=== PATIENT | female | born 1960 | race Caucasian/White ===

== ENCOUNTER 2018-05-12 07:15 | Day surgery (SDC) | payer OTHER ==
[~2018-05-12 07:15] MED LIST: Acetaminophen TAB* 325 MG PO PRN; Buffered Lidocaine 0.9% SYRIN* 5 ML/SYR SYRINGE INTRADERM ONE; Cyclopentolate 1% OPTH.SOL* 2 ML BTL ONE; Ketorolac 0.5% OPHTH (NF) 0.5 % 5 ML BTL ONE; Lidocaine 1%* 5 ML VIAL ONE; Neomycin/Polymy/Dex OPHTH.OIN* 3.5 GM ONE; Phenylephrine 2.5% OPTH.SOL* 2 ML BTL ONE; Tetracaine 0.5% OPTH.SOL 4 ML* 1 DROP BTL ONE; Tropicamide 1% OPTH.SOL* BTL ONE
[2018-05-12] MEDS ORDERED: Midazolam* 1 MG/ML 5 ML VIAL (5 MG) ONE (07:51)
[2018-05-12] MEDS ORDERED: Neomycin/Polymy/Dex OPHTH.OIN* 3.5 GM ONE (07:51)
[2018-05-12] MEDS ORDERED: Lidocaine 1%* 5 ML VIAL ONE (07:51)
[2018-05-12] MEDS ORDERED: Phenylephrine 2.5% OPTH.SOL* 2 ML BTL ONE (07:51)
[2018-05-12] MEDS ORDERED: fentaNYL* 50 MCG/ML 2 ML VIAL (100 MCG VIAL) ONE (07:51)
[2018-05-12] MEDS ORDERED: Cyclopentolate 1% OPTH.SOL* 2 ML BTL ONE (07:51)
[2018-05-12] MEDS ORDERED: Tropicamide 1% OPTH.SOL* BTL ONE (07:51)
[2018-05-12] MEDS ORDERED: Tetracaine 0.5% OPTH.SOL 4 ML* 1 DROP BTL ONE (07:52)
[2018-05-12] MEDS ORDERED: Ketorolac 0.5% OPHTH (NF) 0.5 % 5 ML BTL ONE (07:52)
[2018-05-12] MEDS ORDERED: Phenylephr/Ketorolac 1%/0.3% OPH DROP BTL ONE ×2 (07:52→09:13)
[2018-05-12 09:40] VITALS: BP 114/86
--- NOTE | 2018-05-13 01:14 | OP ---
DATE OF OPERATION: 05/12/18 [facility] DATE OF : 56 SURGEON: Dr. Antolin Leon. BUILDING TECH: None. ANESTHESIA: Topical with intravenous sedation. PRE-OP DIAGNOSIS: Cataract, right eye. POST-OP DIAGNOSIS: Cataract, right eye. OPERATIVE PROCEDURE: Phacoemulsification and cataract extraction with posterior chamber intraocular lens implant, right eye. COMPLICATIONS: None. BLOOD LOSS: None. DESCRIPTION OF PROCEDURE: The patient was brought to the operating room and received a small amount of intravenous sedation. A drop of Tetracaine was placed in her right eye. She was prepped and draped in the usual sterile fashion for ophthalmic surgery and attention was directed to the right eye where a speculum was placed. A paracentesis was created at the 11 o'clock position and 0.1 cc of 1 percent preservative-free Lidocaine was injected into the anterior chamber followed by DisCoVisc. The eye was digitally stabilized while a 2.75 mm keratome was used to create a triplanar clear corneal incision at the 9 o'clock position. A continuous curvilinear capsulorrhexis was created with a cystotome and Utrata forceps. BSS on a cannula was used to hydrodissect the lens from the capsule. Phacoemulsification was performed in a divide-and- conquer technique to create four fragments which were removed. Residual cortical material was removed with irrigation and aspiration. DisCoVisc was used to inflate the capsular bag and an AUOOTO 23.5 Diopter lens was folded and inserted into the capsular bag. DisCoVisc was removed using irrigation and aspiration. BSS on a cannula was used to hydrate the corneal stroma and seal the wound. At the end of the case the pupil was round and the lens was centered. The eye was of normal pressure and the wound was water tight. The speculum was removed and topical Maxitrol ointment was placed on the surface of the eye. The eye was closed, patched and shielded and the patient was sent to the recovery room in stable condition with post operative instructions and follow-up appointment given. [id number]/[facility] #: [id number] MTDD
== END 2018-05-12 09:38 | disposition home or self-care (01) ==
LOC: OREAST 07:15
PROVIDERS: ATTEND Ophthalmology
DX: H25.041 Posterior subcapsular polar age-related cataract, right eye (principal); E11.40 Type 2 diabetes mellitus with diabetic neuropathy, unspecified; Z79.4 Long term (current) use of insulin; I10 Essential (primary) hypertension; E78.00 Pure hypercholesterolemia, unspecified; M79.605 Pain in left leg; M79.604 Pain in right leg; M54.5 Low back pain; Z72.0 Tobacco use; J44.9 Chronic obstructive pulmonary disease, unspecified; Z99.81 Dependence on supplemental oxygen; F41.8 Other specified anxiety disorders
CPT/HCPCS: A9270-GY; C9447; J2250; J3010; V2632

== ENCOUNTER 2018-05-19 10:09 | Day surgery (SDC) | payer OTHER ==
[2018-05-19] MEDS ORDERED: fentaNYL* 50 MCG/ML 2 ML VIAL (100 MCG VIAL) ONE (11:57)
[2018-05-19] MEDS ORDERED: Midazolam* 1 MG/ML 2 ML VIAL (2 MG) ONE (11:57)
[2018-05-19 13:15] VITALS: BP 123/57
[2018-05-19] MEDS ORDERED: Phenylephr/Ketorolac 1%/0.3% OPH DROP BTL ONE (14:12)
--- NOTE | 2018-05-20 01:52 | OP ---
CANCELED PER DR. LEON - FULL AND MORE COMPLETE REPORT DICTATED TO REPLACE THIS DATE OF OPERATION: 05/19/18 - [facility] DATE OF : 56 SURGEON: Dr. Antolin Leon PASTRYCOOK: None. ANESTHESIA: Topical with intravenous sedation. PRE-OP DIAGNOSIS: Cataract, left eye. POST-OP DIAGNOSIS: Cataract, left eye. OPERATIVE PROCEDURE: Phacoemulsification and cataract extraction with posterior chamber intraocular lens implant, left eye. COMPLICATIONS: None. BLOOD LOSS: None. DESCRIPTION OF PROCEDURE: The patient was brought to the operating room and received a small amount of intravenous sedation. A drop of Tetracaine was placed in her left eye. She was prepped and draped in the usual sterile fashion for ophthalmic surgery and attention was directed to the left eye where a speculum was placed. A paracentesis was created at the 5 o'clock position and 0.1 cc of 1 percent preservative-free Lidocaine was injected into the anterior chamber followed by DisCoVisc. The eye was digitally stabilized while a 2.75 mm keratome was used to create a triplanar clear corneal incision at the 3 o'clock position. A continuous curvilinear capsulorrhexis was created with a cystotome and Utrata forceps. BSS on a cannula was used to hydrodissect the lens from the capsule. Phacoemulsification was performed in a divide-and- conquer technique to create four fragments which were removed. Residual cortical material was removed with irrigation and aspiration. DisCoVisc was used to inflate the capsular bag and an AU00T0 23.5 diopter lens was folded and inserted into the capsular bag. DisCoVisc was removed using irrigation and aspiration. BSS on a cannula was used to hydrate the corneal stroma and seal the wound. At the end of the case the pupil was round and the lens was centered. The eye was of normal pressure and the wound was water tight. The speculum was removed and topical Maxitrol ointment was placed on the surface of the eye. The eye was closed, patched and shielded and the patient was sent to the recovery room in stable condition with post operative instructions and follow-up appointment given. [id number]/[facility]PS #: [id number] MTDJeff
--- NOTE | 2018-05-20 07:06 | OP ---
DATE OF OPERATION: 05/19/18 - [facility] DATE OF : 56 SURGEON: Dr. Leon. BABCOCK TESTER: None. ANESTHESIA: Topical with intravenous sedation. PRE-OP DIAGNOSIS: Cataract with small pupil, left eye. POST-OP DIAGNOSIS: Cataract with small pupil, left eye. OPERATIVE PROCEDURE: hacoemulsification and cataract extraction with posterior chamber intraocular lens implant, left eye. COMPLICATIONS: None. BLOOD LOSS: None. DESCRIPTION OF PROCEDURE: The patient was brought to the operating room and given intravenous sedation and a drop of Tetracaine to her left eye. She was prepped and draped in the usual sterile fashion for ophthalmic surgery and attention was directed to the left eye where a speculum was placed. A paracentesis was created at the 5 o'clock position and 0.1 cc of 1% preservative -free Lidocaine was injected into the anterior chamber followed by DisCoVisc. The eye was digitally stabilized and a 2.75 mm keratome was used to create a triplanar clear corneal incision at the 3 o'clock position. It was noted that the pupil measured approximately 3.5 to 4 mm in diameter. A continuous curvilinear capsulorrhexis was created with a cystotome and Utrata forceps measuring approximately 4 mm in diameter. Omidria was placed into the irrigating solution. BSS on a cannula was used to hydrodissect the lens from the capsule. Phacoemulsification was begun and it was noted the pupil was not staying large. So, instead the phacoemulsification tip was removed and more DisCoVisc was placed into the anterior chamber. A Malyugin ring was inserted to hold the pupil open. At this point, phacoemulsification was resumed. A divide-and- conquer technique was employed to create four fragments, which were removed. Residual cortical material was removed with irrigation and aspiration. DisCoVisc was used to inflate the capsular bag. An AUOOTO 23.5 diopter lens was inserted into the capsular bag. The Malyugin ring was removed. DisCoVisc was then removed from the eye. BSS on a cannula was used to hydrate the corneal stroma and seal the wound. At the end of the case, the pupil was small, round and regular. The eye pressure appeared normal. The lens was centered and stable. The speculum was removed and topical Maxitrol ointment was placed on the surface of the eye. The eye was closed, patched and shielded and the patient was sent to the recovery room in stable condition with postoperative instructions and followup appointment given. [id number]/[facility] #: [id number] THEODORA
== END 2018-05-19 13:15 | disposition home or self-care (01) ==
LOC: OREAST 10:09
PROVIDERS: ATTEND Ophthalmology
DX: H25.042 Posterior subcapsular polar age-related cataract, left eye (principal); H21.562 Pupillary abnormality, left eye; I10 Essential (primary) hypertension; E78.00 Pure hypercholesterolemia, unspecified; J44.9 Chronic obstructive pulmonary disease, unspecified; Z72.0 Tobacco use; E11.9 Type 2 diabetes mellitus without complications; Z79.4 Long term (current) use of insulin; F41.8 Other specified anxiety disorders; Z99.81 Dependence on supplemental oxygen
CPT/HCPCS: A9270-GY; C9447; J2250; J3010; V2632

== ENCOUNTER 2018-11-19 14:47 | Observation (INO) | payer OTHER ==
[2018-11-19] MEDS ORDERED: Acetaminophen TAB* 325 MG PO ONE (15:15)
[2018-11-19] MEDS ORDERED: cefTRIAXone(*) 1 GM in NS 0.9% 50 ML* 50 ML IVPB ONE (15:31)
[2018-11-19] MEDS ORDERED: NS 0.9% 1000 ML*IV.FLUID IV ONE (15:31)
[2018-11-19] MEDS ORDERED: Azithromycin IV(*) 500 MG in NS 0.9% 250 ML* 250 ML IVPB ONE (15:31)
--- NOTE | 2018-11-19 15:37 | ED ---
HPI Febrile Illness - HPI Summary HPI Summary: 58-year-old female presents with shortness of breath and altered mental status today. She has been having a fever. She spent times a day for 3 days. She is originally called for diabetic problem. She is arousable. She is on home oxygen at night. She has history of COPD. no sore throat or sinus congestion. she denies any SOB but appears SOB on exam. denies any chest pain. She occurs no compliant at this time. no abdominal pain. no pain or swelling in her calf muscles. - History of Current Complaint Chief Complaint: EDGeneral Time Seen by Provider: 11/19/18 15:05 Pain Intensity: 0 - Allergy/Home Medications Allergies/Adverse Reactions: Allergies Allergy/AdvReac Type Severity Reaction Status Date / Time codeine Allergy Severe Itching Verified 11/19/18 17:14 Seasonal Allergies Allergy Congestion Uncoded 11/19/18 17:14 Home Medications: Home Medications Gabapentin CAP(*) [Neurontin 400 mg CAP(*)] 1,200 mg PO TID 11/19/18 [History Confirmed 11/19/18] Insulin NPH Hum/Reg Insulin Hm [Novolin 70-30 Flexpen] 32 unit SUBCUT BID [History Confirmed 11/19/18] Metoprolol Tartrate TAB* [Lopressor TAB*] 50 mg PO BID 11/19/18 [History Confirmed 11/19/18] Nortriptyline CAP* [Pamelor CAP*] 100 mg PO BEDTIME 11/19/18 [History Confirmed 11/19/18] Oxazepam CAP* [Serax CAP*] 15 mg PO BEDTIME 11/19/18 [History Confirmed 11/19/18 ] Oxybutynin TAB* [Ditropan TAB*] 5 mg PO TID 11/19/18 [History Confirmed 11/19/18 ] PMH/Surg Hx/FS Hx/Imm Hx Endocrine/Hematology History: Reports: Hx Diabetes - Juvenile diabetes, Type I, 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1 Denies: Hx Anticoagulant Therapy Cardiovascular History: Reports: Hx Hypertension - on medication Denies: Other Cardiovascular Problems/Disorders Respiratory History: Reports: Hx Chronic Obstructive Pulmonary Disease (COPD), Other Respiratory Problems/Disorders - Oxygen 3 liters, nasal cannula at night GI History: Reports: Other GI Disorders - Gastroparesis, heart burn on occasion , denies GERD History: Reports: Other Problems/Disorders - Urinary urgency and frequency Musculoskeletal History: Reports: Hx Arthritis - back, Other Musculoskeletal History - Spondlylosis Sensory History: Reports: Hx Cataracts - Bilateral eyes, Hx Contacts or Glasses - has glasses, states they don't help very much Denies: Hx Hearing Aid Opthamlomology History: Reports: Hx Cataracts - Bilateral eyes, Hx Contacts or Glasses - has glasses, states they don't help very much Neurological History: Reports: Hx Nerve Disease - Diabetic neuropathy Denies: Other Neuro Impairments/Disorders Psychiatric History: Reports: Hx Anxiety - on medication - Surgical History Surgery Procedure, Year, and Place: Right second toe amputation - 08/2017 [facility] x 4-thru 10/12. Retinal reattachment x4- [facility] 2008, 2009, 2010. Hysterectomy - age 24. C section - 1984. Tonsillectomy/ Adenoidectomy age 5 Hx Anesthesia Reactions: No Infectious Disease History: No Infectious Disease History: Denies: Traveled Outside the [place] in Last 30 Days - Family History Known Family History: Positive: Hypertension - Social History Alcohol Use: None Substance Use Type: Reports: None Smoking Status (MU): Former Smoker Type: Cigarettes Amount Used/How Often: >1 PPD for 40 years Review of Systems Negative: Fever Negative: Chest Pain Positive: Shortness Of Breath, Cough Negative: Abdominal Pain All Other Systems Reviewed And Are Negative: Yes Physical Exam Triage Information Reviewed: Yes Vital Signs On Initial Exam: Initial Vitals Temp Pulse Resp BP Pulse Ox 101.1 F 105 18 137/65 95 11/19/18 14:48 11/19/18 14:48 11/19/18 14:48 11/19/18 14:48 11/19/18 14:48 Vital Signs Reviewed: Yes Appearance: Positive: Ill-Appearing - lethargic but arousable Skin: Positive: Warm, Dry Head/Face: Positive: Normal Head/Face Inspection Eyes: Positive: Normal, EOMI, VISHAL, Conjunctiva Clear ENT: Positive: Pharynx normal, TMs normal, Other - dry mouth Neck: Positive: Supple, Nontender Respiratory/Lung Sounds: Positive: Decreased Breath Sounds, Rales Cardiovascular: Positive: Normal, RRR Abdomen Description: Positive: Nontender, Soft Bowel Sounds: Positive: Present Musculoskeletal: Positive: Normal Neurological: Positive: Sensory/Motor Intact, Alert, Oriented to Person Place, Time, CN Intact II-III Psychiatric: Positive: Normal - Alfonso Coma Scale Best Eye Response: 4 - Spontaneous Best Motor Response: 6 - Obeys Commands Best Verbal Response: 5 - Oriented Coma Scale Total: 15 Diagnostics - Vital Signs Vital Signs Temp Pulse Resp BP Pulse Ox 11/19/18 14:48 101.1 F 105 18 137/65 95 - Laboratory Result Diagrams: 11/19/18 15:09 11/19/18 15:09 Lab Statement: Any lab studies that have been ordered have been reviewed, and results considered in the medical decision making process. - Radiology chest Radiology Interpretation Completed By: Radiologist Summary of Radiographic Findings: IMPRESSION: PATCHY CONSOLIDATION OF THE RIGHT MIDDLE LOBE. RECOMMEND FOLLOW-UP UNTIL RESOLUTION TO. EXCLUDE UNDERLYING PULMONARY PARENCHYMAL PATHOLOGY. - EKG No standard instances Cardiac Rate: NL, Tachycardia EKG Rhythm: Sinus Tachycardia Summary of EKG Findings: sinus tachycardia Course/Dx - Course Course Of Treatment: 58 year old female presents with fever and cough today. has history of COPD. is altered on exam. is slow to arouse but does answer question appropiately. no vomiting or chest pain. on exam appears ill. decrease lung sounds. chest xray shows pneumonia. wbc normal. lactic normal. gave fluids and rocephin and azithryomycin to cover to pneumonia. flu negative with AMS discused with hospitalist who agree to admit. - Febrile Illness Differential Diagnoses: Pneumonia, Sepsis, Other: - copd - Diagnoses Provider Diagnoses: Pneumonia, COPD (chronic obstructive pulmonary disease), Sepsis - Critical Care Time Critical Care Time: 30-74 min - 30 min Discharge - Sign-Out/Discharge Documenting (check all that apply): Patient Departure - Discharge Plan Condition: Fair Disposition: ADMITTED TO [facility] - Billing Disposition and Condition Condition: FAIR Disposition: Admitted to [facility]
[2018-11-19 16:14] LABS: ABS Basophils 0 10^3/ul (0-0.2); ABS Eosinophils 0 10^3/ul (0-0.6); ABS Lymphocytes 1.1 10^3/ul (1.0-4.8); ABS Monocytes 0.6 10^3/ul (0-0.8); ABS Neutrophils 7.9 10^3/ul (1.5-7.7); ABS Nucleated RBC 0 10^3/ul; Eosinophil % 0 %; Hematocrit 43 % (35-47); Hemoglobin 14.1 g/dl (12.0-16.0); Lymphocyte % 11.6 %; Mean Corpuscular HGB Conc 33 g/dl (31-36); Mean Corpuscular Hemoglobin 28 pg (27-31); Mean Corpuscular Volume 84 fL (80-97); Mean Platelet Volume 7.8 fL (7.4-10.4); Nucleated Red Blood Cells % 0; Platelet Count 234 10^3/ul (150-450); Red Blood Count 5.15 10^6/ul (4.00-5.40); Red Cell Distribution Width 14 % (10.5-15); White Blood Count 9.7 10^3/ul (3.5-10.8)
[2018-11-19 16:26] LABS: Activated Partial Thrombo Time 33.7 seconds (26.0-36.3); INR 0.88 (0.77-1.02)
[2018-11-19 16:32] LABS: Albumin 3.2 g/dL (3.2-5.2); Albumin/Globulin Ratio 0.9 (1-3); BUN/Creatinine Ratio 24.5 (8-20); Calcium 9.1 mg/dL (8.6-10.3); EGFR African American 46.8 (>60); EGFR Non-African American 38.7 (>60); Globulin 3.4 g/dL (2-4); Potassium 4.5 mmol/L (3.5-5.0); Total Bilirubin 0.2 mg/dL (0.2-1.0); Total Protein 6.6 g/dL (6.4-8.9)
[2018-11-19] MEDS ORDERED: Al Hydrox/Mg Hydrox/Simet LIQ* 30 ML UDC PO PRN (17:12)
[2018-11-19] MEDS ORDERED: Acetaminophen TAB* 325 MG PO PRN (17:12)
[2018-11-19] MEDS ORDERED: Albuterol 2.5 MG/3 ML NEB.SOL* (0.083%) INH PRN (17:14)
[2018-11-19] MEDS ORDERED: Albuterol HFA INHALER* 8 gm MDI INH PRN (17:14)
[2018-11-19] MEDS ORDERED: Piperacillin/Tazobac ADVAN(*) 3.375 GM in NS 0.9% 100 ML* 100 ML IVPB ONE (17:14)
[2018-11-19] MEDS ORDERED: NS 0.9% 1000 ML* 1,000 ML IV SCH (17:15)
[2018-11-19] MEDS ORDERED: Dextrose 50% Syringe 50 ML* 25 GM/50 ML SYRINGE IV PUSH PRN (17:20)
[2018-11-19] MEDS ORDERED: Zosyn per Pharmacy* NOTE FOLLOW UP SCH (18:00)
[2018-11-19] MEDS ORDERED: Nortriptyline CAP* 25 MG PO SCH ×2 (18:00→22:00)
[2018-11-19 19:44] LABS: Influenza A Molecular NEGATIVE (Negative); Influenza B Molecular NEGATIVE (Negative)
--- NOTE | 2018-11-19 20:17 | HP ---
CC: Kristina Matthews NP * HISTORY AND PHYSICAL: DATE OF ADMISSION: 11/19/18 PRIMARY CARE PROVIDER: Kristina Matthews NP CHIEF COMPLAINT: Altered mentation and cough. HISTORY OF PRESENT ILLNESS: Rebecca Miller is a 58-year-old female with a history of diabetes, diabetic neuropathy, who presented to the hospital after her daughter today had problems with waking her up. The patient has also history of COPD and uses oxygen at night 4 L. When her daughter was trying to wake her up today in the morning, she was sleeping in her bed without oxygen. Eventually, after the peanut farmer were called, the patient was able to be aroused, but she was somewhat lethargic. The patient now is almost back to her baseline as per her daughter. The patient stated that approximately a week ago, she " choked on coffee." She stated that since then she had been having cough and pain with coughing on the right chest. The patient had a temperature of 101.1 degrees here. She has a right middle lobe infiltrated and she is going to be admitted with the diagnosis of sepsis and aspiration pneumonia. PAST MEDICAL HISTORY: 1. History of diabetes type 2, on insulin. 2. History of COPD, on oxygen at 4 L at night only. 3. History of hypertension. 4. History of status post right second toe amputation several years ago. MEDICATIONS: The patient's medications include: 1. Metoprolol tartrate 1 tablet twice at 50 mg. 2. Oxybutynin 5 mg 3 times a day. 3. Gabapentin 1200 mg 3 times a day. 4. Nortriptyline 100 mg at bedtime. 5. Oxazepam 15 mg at bedtime. 6. Insulin 70/30 Novolin at 32 units twice a day. ALLERGIES: CODEINE. FAMILY HISTORY: Positive for father, who at the age of 49 with colon cancer. Mother in her 30s of esophageal cancer. SOCIAL HISTORY: The patient smokes a pack of cigarettes a day and she has been doing so since she turned 10. She lives with her daughter, who is her healthcare proxy and daughter's name is Lillian. She also lives with her , who has a history of dementia. There is no history of alcohol or drug use. REVIEW OF SYSTEMS: Please see history of present illness. All the remaining 12 systems were reviewed with the patient and were otherwise negative. PHYSICAL EXAMINATION GENERAL: The patient is a very pleasant 58-year-old female who is in no acute distress. Alert, awake, and oriented x3. The patient's recall is read as slow. VITAL SIGNS: Blood pressure of 137/65, heart rate of 105 and regular, respiratory rate 18, oxygen saturation 95% on 2 L of oxygen nasal cannula, and temperature of 101.1. HEENT: Head atraumatic and normocephalic. Eyes: Pupils are equal, reactive to light and accommodation. Oropharynx is clear. Mucosa dry. NECK: Supple. No JVD. No bruits bilaterally. RESPIRATORY: Crackles at right lower lobe, otherwise clear. CARDIOVASCULAR: Regular rate and rhythm. No murmur. ABDOMEN: Soft and nontender. Bowel sounds present in all 4 quadrants. EXTREMITIES: There is no edema. Pulses are 1+ bilaterally. There was no clubbing or cyanosis. The patient is status post amputation of the right second toe and no problems with wounds. Postop, wound well healed. SKIN: On evaluation of the skin, no ecchymotic areas or rashes noted. PSYCHIATRIC EVALUATION: The patient appears to have slow recall and that is per patient's daughter is not normal for the patient. Otherwise, she is alert and oriented x3 with no evidence of anxiety or depression. DIAGNOSTIC STUDIES/LAB DATA: Laboratory data shows a white cell count of 9.7, hemoglobin 14.1, hematocrit 43, and platelets of 234. Sodium 136, potassium 4.5 , chloride 102, carbon dioxide 28, BUN 34, and creatinine 1.39. Liver functions are unremarkable apart from alkaline phosphatase that is mildly elevated at 106. Troponin 0.0. Lactic acid 0.8. Glucose of 293. Portable chest x-ray, impression: "Fatty consolidation of the right middle lobe. Recommend followup until resolution to exclude underlying pulmonary parenchymal pathology." The patient's EKG showed sinus tachycardia with a heart rate of 101 beats per minute with no significant ST changes. ASSESSMENT AND PLAN: 1. The patient is septic due to aspiration pneumonia. She is going to be continued with Zosyn. Blood cultures will be obtained. At this point, the patient does not appear to have significant hypoxemia, although she requires 2 L oxygen nasal cannula and she usually does not use oxygen during the daytime. The patient will receive intravenous fluid boluses and she is going to be continued on normal saline during her hospital stay. At this point, I placed the patient on observation status, but she may need to be converted if she does not recall very well within next 24 hours. 2. Diabetes. The patient is going to be placed on lower dose of insulin 70/ 30. She is going to be placed on diabetic diet and insulin sliding scale. 3. In regards of the patient's outpatient treatment of hypertension, metoprolol is going to be continued. 4. For the patient's neuropathy, gabapentin is going to be continued. 5. For DVT prophylaxis, the patient is going to be placed on heparin subcutaneously. 6. The patient's code status is full and her surrogate is her daughter as mentioned above. 7. The patient has an increased creatinine, which may be the patient's baseline. The patient had been in [facility] in the past, but never in our facility for hospitalization or blood work. I suspect that the patient has a history of chronic kidney disease due to diabetes. Nevertheless, we will follow with creatinine monitoring in the morning. TIME SPENT: Approximately 72 minutes was spent on admission of this patient, more than half that time was spent [id number] with the patient during the interview and physical exam. [id number]/[facility] #: [id number] THEODORA
[2018-11-19] MEDS: Gabapentin CAP(*) 400 MG PO SCH (21:19)
[2018-11-19] MEDS: Docusate CAP* 100 MG PO SCH (21:20)
[2018-11-19] MEDS: Insulin LISPRO* 1 UNITS UNIT SUBCUT SCH (21:20)
[2018-11-19] MEDS: Oxybutynin TAB* 5 MG PO SCH (21:20)
[2018-11-19] MEDS: Metoprolol Tartrate TAB* 50 mg PO SCH (21:20)
[2018-11-19] MEDS: Heparin VIAL(*) 5000 UNITS/ML VIAL (FIVE THOUSAND) SUBCUT SCH (21:20)
[2018-11-19] MEDS: Insulin ISOPH/REG 70/30 (*) 1 UNITS UNIT SUBCUT SCH (21:21)
[2018-11-19] MEDS: ZOSYN 3.375 GM Q8H per EXTENDED INFUSION IVPB SCH ×2 (22:43)
[2018-11-20] MEDS: Heparin VIAL(*) 5000 UNITS/ML VIAL (FIVE THOUSAND) SUBCUT SCH ×2 (05:52→14:09)
[2018-11-20] MEDS: ZOSYN 3.375 GM Q8H per EXTENDED INFUSION IVPB SCH ×2 (06:00)
[2018-11-20 07:30] LABS: ABS Basophils 0 10^3/ul (0-0.2); ABS Eosinophils 0 10^3/ul (0-0.6); ABS Lymphocytes 1.3 10^3/ul (1.0-4.8); ABS Monocytes 0.6 10^3/ul (0-0.8); ABS Neutrophils 5.2 10^3/ul (1.5-7.7); ABS Nucleated RBC 0 10^3/ul; Eosinophil % 0 %; Hematocrit 40 % (35-47); Hemoglobin 12.8 g/dl (12.0-16.0); Lymphocyte % 18.6 %; Mean Corpuscular HGB Conc 32 g/dl (31-36); Mean Corpuscular Hemoglobin 28 pg (27-31); Mean Corpuscular Volume 86 fL (80-97); Mean Platelet Volume 7.9 fL (7.4-10.4); Nucleated Red Blood Cells % 0; Platelet Count 199 10^3/ul (150-450); Red Blood Count 4.63 10^6/ul (4.00-5.40); Red Cell Distribution Width 15 % (10.5-15); White Blood Count 7.1 10^3/ul (3.5-10.8)
[2018-11-20 07:50] LABS: BUN/Creatinine Ratio 23.1 (8-20); Calcium 8.1 mg/dL (8.6-10.3); EGFR African American 57.1 (>60); EGFR Non-African American 47.2 (>60); Potassium 4.2 mmol/L (3.5-5.0)
[2018-11-20] MEDS: Insulin LISPRO* 1 UNITS UNIT SUBCUT SCH ×2 (08:18→14:09)
[2018-11-20] MEDS: Gabapentin CAP(*) 400 MG PO SCH ×2 (09:19→14:09)
[2018-11-20] MEDS: Docusate CAP* 100 MG PO SCH (09:20)
[2018-11-20] MEDS: Oxybutynin TAB* 5 MG PO SCH ×2 (09:20→14:09)
[2018-11-20] MEDS: Metoprolol Tartrate TAB* 50 mg PO SCH (09:20)
[2018-11-20] MEDS: Insulin ISOPH/REG 70/30 (*) 1 UNITS UNIT SUBCUT SCH (09:46)
[2018-11-20 11:06] LABS: Urine Appearance Clear; Urine Bacteria 1+ (Absent); Urine Bilirubin Negative (Negative); Urine Blood 1+ (Negative); Urine Color Yellow; Urine Glucose 1+(50 mg/dL) (Negative); Urine Ketones Negative (Negative); Urine Nitrite Negative (Negative); Urine Protein 2+(100 mg/dL) (Negative); Urine Red Blood Cell Trace(0-2/hpf) (Absent); Urine Specific Gravity 1.014 (1.010-1.030); Urine Squamous Epithelial Cell Present (Absent); Urine Urobilinogen Negative (Negative); Urine White Blood Cell 2+(11-20/hpf) (Absent)
[2018-11-20 11:23] LABS: Barbiturates Urine Screen None Detected (None Detect); Benzodiazepine Urine Screen None Detected (None Detect); Urine Cannabinoids Screen None Detected (None Detect)
[2018-11-20 12:46] VITALS: BP 121/56
--- NOTE | 2018-11-20 21:37 | DS ---
CC: Kristina Matthews NP * DISCHARGE SUMMARY: DATE OF ADMISSION: 11/19/18 DATE OF DISCHARGE: 11/20/18 PRIMARY CARE PROVIDER: Kristina Matthews. PRIMARY DIAGNOSIS: Pneumonia right-sided. SECONDARY DIAGNOSES: Include: 1. Insulin-dependent type 2 diabetes. 2. Chronic obstructive pulmonary disease with oxygen at night and p.r.n. during the day. 3. History of hypertension, essential. 4. Acute kidney injury. MEDICATIONS ON DISCHARGE: 1. Oxazepam 15 mg at bedtime. 2. Nortriptyline 100 mg at bedtime. 3. Gabapentin 1200 mg 3 times a day. 4. Oxybutynin 5 mg 3 times a day. 5. Metoprolol tartrate 50 mg twice daily. 6. Insulin NPH 32 units twice daily. 7. Doxycycline 100 mg twice daily for 7 days. 8. Augmentin 875 mg twice daily for 7 days. 9. Acetaminophen 650 mg every 4 hours as needed for pain. PERTINENT LABORATORY DATA: White blood cell count on discharge 7.1, creatinine on presentation 1.39, on discharge 1.17. PERTINENT IMAGING: Chest x-ray on presentation, patchy consolidation of the right middle lobe. Recommend followup until resolution to exclude underlying pulmonary parenchymal pathology. HISTORY OF PRESENT ILLNESS: A 58-year-old female with past medical history as outlined in the history of present illness on the day of admission presented to the hospital after she was difficult to arouse from sleep. It was noted that she was not wearing oxygen while she was asleep; however, she notes that she only wears oxygen about 3 times a week. She was admitted to the hospital. She had a history of choking on cough a week prior and was treated for suspected aspiration pneumonia with Zosyn. The following day, she felt improved. She ate breakfast. She ambulated without the need for oxygen. She had one fever on presentation to 101.1 and then remained afebrile. She had no cough, no leukocytosis. A viral pneumonia is certainly on the differential; however, I will continue to treat her as an outpatient to include both community acquired and aspiration pneumonia with Augmentin and doxycycline. There are no complications during the course of this hospital stay. The patient is in agreement with the hospital plan. At followup, please: 1. Repeat chest x-ray at appropriate interval to evaluate for resolution as indicated in the body of the initial chest x-ray report. 2. No other specific labs or vitals on the followup. Reasons to return to the hospital including, but not limited to, recurrent or worsening symptoms, chest pain, shortness of breath, nausea, vomiting, lightheadedness, loss of consciousness, near loss of consciousness, or inability to obtain or tolerate medications were discussed with patient at length. She acknowledged understanding. TIME SPENT: Greater than 60 minutes were spent on discharge of this patient, greater than half was spent [id number] with the patient. [id number]/[facility] #: [id number] THEODORA
== END 2018-11-20 15:00 | disposition home or self-care (01) ==
LOC: ED 14:47 → MED 17:12
PROVIDERS: ADMIT Internal Medicine; ATTEND Internal Medicine
DX: J18.9 Pneumonia, unspecified organism (principal); E11.8 Type 2 diabetes mellitus with unspecified complications; Z79.4 Long term (current) use of insulin; J44.9 Chronic obstructive pulmonary disease, unspecified; I10 Essential (primary) hypertension; N17.9 Acute kidney failure, unspecified
CPT/HCPCS: 36415; 71046; 80048; 80053; 80307; 81003; 81015; 83605; 83735; 83880; 84484; 85025; 85610; 85730; 87040; 87086; 93005; 99285; A9270-GY; J0456; J0696; J1644; J2543